=== PATIENT | female | born 1945 | race African-American/Black ===

== ENCOUNTER 2021-05-12 13:52 | Observation (INO) ==
[2021-05-12] MEDS ORDERED: DILTIAZEM 50 MG/10 ML VIAL IV STA (14:16)
[2021-05-12 14:21] LABS: Basophils # 0.1 10*3/uL (0.0-0.2); Eosinophils # 0.2 10*3/uL (0.0-0.87); Eosinophils % 2.7 % (0.00-10.9); Hematocrit 49.3 VOL% (35.7-47.0); Hemoglobin 16.4 GM/DL (12.0-16.0); Immature Granulocytes % 0.6 %; Immature Granulocytes Absolute 0.04 #; Lymphocytes # 1.9 10*3/uL (1.4-4.0); Lymphocytes % 26.8 % (21.3-54.2); Mean Corpuscular HGB Conc 33.3 GM/DL (32-36); Mean Corpuscular Volume 87.6 FL (87-102); Mean Platelet Volume 10.4 FL (9.6-12.0); Monocytes % 8.3 % (1.7-12.7); Neutrophils % 60.6 % (38.7-73.9); Platelet Count 220 T/CUMM (130-400); Red Blood Count 5.63 MC/CUMM (3.8-5.5); Red Cell Distribution Width 13.5 % (9.3-17.3)
[2021-05-12] MEDS: DILTIAZEM INJ 100 MG in SODIUM CHLORIDE 0.9% 100 ML IV SCH ×2 (14:28→19:50)
[2021-05-12 14:50] LABS: PT Patient Result 10.8 SECS (10.5-12.0); Partial Thromboplastin Time 26.8 SECS (23.9-33.8)
[2021-05-12 15:34] LABS: Albumin 7.9 G/DL (3.4-5.0); Bilirubin,Total 0.87 MG/DL (0.2-1.0); Osmolality,Calculated 277.5 MOS/KG (273-304); Potassium 3.5 MMOL/L (3.5-5.1)
[2021-05-12 15:35] LABS: Calcium 9.4 MG/DL (8.5-10.1)
[2021-05-12] MEDS ORDERED: DEXTROSE 50% 25 GM/50 ML VIAL IV PRN (15:53)
[2021-05-12] MEDS ORDERED: ONDANSETRON 4 MG/2 ML VIAL IV PRN (15:53)
[2021-05-12] MEDS ORDERED: GLUCAGON 1 MG VIAL IM PRN (15:53)
[2021-05-12] MEDS ORDERED: ACETAMINOPHEN 325 MG TABLET PO PRN (15:53)
[2021-05-12 17:35] LABS: Barbiturates Screen,Urine Negative (Negative); Benzodiazepines Screen,Urine Negative (Negative); Cannabinoid Screen,Urine Negative (Negative); Opiate Screen,Urine Positive (Negative); Phencyclidine Screen,Urine Negative (Negative)
[2021-05-12] MEDS: traZODone 50 MG TABLET PO SCH (21:55)
[2021-05-12] MEDS: SIMVASTATIN 40 MG TABLET PO SCH (21:55)
[2021-05-13 05:10] LABS: Albumin 3.2 G/DL (3.4-5.0); Calcium 8.7 MG/DL (8.5-10.1); Osmolality,Calculated 281.1 MOS/KG (273-304); Potassium 3.7 MMOL/L (3.5-5.1); Total Protein 6.3 G/DL (6.4-8.2)
[2021-05-13 05:11] LABS: Risk Ratio 5.4; VLDL Cholesterol 27.2 MG/DL
[2021-05-13] MEDS: amLODIPine 10 MG TABLET PO SCH (09:37)
[2021-05-13] MEDS: PANTOPRAZOLE 40 MG TABLET PO SCH (09:37)
[2021-05-13] MEDS: atenoloL 50 MG TABLET PO SCH (09:39)
[2021-05-13] MEDS: MELOXICAM 7.5 MG TABLET PO SCH (09:40)
[2021-05-13] MEDS: ENOXAPARIN 40 MG/0.4 ML SYRINGE SUBCUT SCH (09:41)
[2021-05-13] MEDS: FEXOFENADINE 180 MG TABLET PO SCH (09:41)
[2021-05-13] MEDS: DILTIAZEM INJ 100 MG in SODIUM CHLORIDE 0.9% 100 ML IV SCH (14:00)
[2021-05-13] MEDS: traZODone 50 MG TABLET PO SCH (20:35)
[2021-05-13] MEDS: SIMVASTATIN 40 MG TABLET PO SCH (20:35)
[2021-05-14 07:15] LABS: Basophils # 0.1 10*3/uL (0.0-0.2); Basophils % 0.9 % (0.0-0.8); Eosinophils # 0.2 10*3/uL (0.0-0.87); Eosinophils % 3.3 % (0.00-10.9); Hematocrit 43.3 VOL% (35.7-47.0); Hemoglobin 14.9 GM/DL (12.0-16.0); Immature Granulocytes % 0.5 %; Immature Granulocytes Absolute 0.03 #; Lymphocytes # 1.6 10*3/uL (1.4-4.0); Lymphocytes % 27.2 % (21.3-54.2); Mean Corpuscular HGB Conc 34.4 GM/DL (32-36); Mean Corpuscular Volume 87.5 FL (87-102); Monocytes % 9.8 % (1.7-12.7); Neutrophils % 58.3 % (38.7-73.9); Platelet Count 182 T/CUMM (130-400); Red Blood Count 4.95 MC/CUMM (3.8-5.5); Red Cell Distribution Width 13.7 % (9.3-17.3); White Blood Count 5.7 T/CUMM (4-12)
[2021-05-14 07:39] LABS: Calcium 8.5 MG/DL (8.5-10.1); Potassium 3.9 MMOL/L (3.5-5.1)
[2021-05-14 08:35] VITALS: BP 108/65
[2021-05-14] MEDS: MELOXICAM 7.5 MG TABLET PO SCH (09:16)
[2021-05-14] MEDS: amLODIPine 10 MG TABLET PO SCH (09:16)
[2021-05-14] MEDS: atenoloL 50 MG TABLET PO SCH (09:17)
[2021-05-14] MEDS: PANTOPRAZOLE 40 MG TABLET PO SCH (09:17)
[2021-05-14] MEDS: ENOXAPARIN 40 MG/0.4 ML SYRINGE SUBCUT SCH (09:18)
[2021-05-14] MEDS: FEXOFENADINE 180 MG TABLET PO SCH (09:18)
== END 2021-05-14 12:15 | disposition home or self-care (01) ==
LOC: N.ED 13:52 → N.EDINP 13:52 → N.TELES 17:42
PROVIDERS: ADMIT Internal Medicine; ATTEND Internal Medicine